=== PATIENT | male | born 1955 | race Caucasian/White ===

== ENCOUNTER 2016-10-09 09:21 | Emergency (ER) | payer OTHER ==
[~2016-10-09] VITALS: Ht 160 cm; Wt 57.2 kg
[~2016-10-09 09:21] MED LIST: ADVAIR 100-501 EACH IH; ADVAIR 250/501 DISK IH; ASPIRIN325 MG PO; DOXYCYCLINE HY100 MG PO; DULERA 100 MCG/13 GM IH; DUONEB 2.5-0.5 M3 ML AEROSOL; DUONEB 2.5-0.5 M3 ML IH; Ecotrin PO; FOLIC ACID1 MG PO; IBUPROFEN600 MG PO; IBUPROFEN800 MG PO; IMDUR30 MG PO; ISOSORBIDE DINI30 MG PO; ISOSORBIDE MONO30 MG PO; LISINOPRIL10 MG PO; LISINOPRIL20 MG PO; LITE COAT ASPI325 M1 PO; LOPRESSOR12.5 MG PO; LOPRESSOR50 MG PO; METOPROLOL TART25 MG PO; METOPROLOL TART50 MG PO; MIRALAX17 GM PO; MIRALAX255 GM PO; MOTRIN600 MG PO; NEXIUM20 MG PO; NEXIUM40 MG PO; NITROSTAT,NITR0.4 M1 SL; NITROSTAT0.4 MG SL; OMEPRAZOLE40 M1 PO; PAROXETINE HCL20 MG PO; PAXIL20 MG PO; PRAVACHOL80 MG PO; PRAVASTATIN SOD80 MG PO; PREDNISONE10 MG PO; PREDNISONE20 MG PO; PRILOSEC40 MG PO; PROAIR HFA8.5 GM IH; PROVENTIL17 GM IH; Proventil,Ventolin H IH; RANITIDINE HCL300 M1 PO; RANITIDINE HCL300 MG PO; SIMVASTATIN40 MG PO; Tylenol Regular Stre PO; VITAMIN B-1100 MG PO; ZESTRIL,PRINIVI10 M1 PO; ZESTRIL10 MG PO; ZITHROMAX250 MG PO; Zestoretic,Prinzide PO; Zocor PO
[2016-10-09 10:15] LABS: HEMATOCRIT 44.7 % (38.0-50.0); MCH 30.4 PG (29.0-34.0); MCHC 34.5 G/DL (30.0-36.0); MCV 88.3 FL (86-99); MEAN PLAT.VOLUME 12.9 uM^3 (9.0-12.4); PLATELET COUNT 181 K/uL (156-360); RBC DIS.WIDTH-CV 14.5 % (11.8-14.6); RBC DIS.WIDTH-SD 46.1 % (39-53); RED BLOOD COUNT 5.06 M/uL (4.00-5.50); WHITE BLOOD COUNT 10.6 K/uL (4.1-10.2)
[2016-10-09 10:27] LABS: CHLORIDE 100 mEq/L (99-109); SODIUM 135 mEq/L (136-147)
[2016-10-09 10:29] LABS: GLUCOSE 92 mg/dL (70-99)
[2016-10-09 10:30] LABS: ANION GAP 9 MEQ/L (2-14)
[2016-10-09 10:33] LABS: GFR ESTIMATE (CALCULATED) > 59 mL/min/
[2016-10-09 10:34] LABS: UREA NITROGEN (BUN) 16 mg/dL (9-23)
[2016-10-09 10:35] LABS: TROP-I INTERPRETATION NEGATIVE; TROPONIN-I < 0.01 ng/mL (0.0-0.30)
[2016-10-09] MEDS ORDERED: PREDNISONE50 MG PO (11:30)
[2016-10-09] MEDS ORDERED: ZITHROMAX Z-PA250 MG PO (11:30)
[2016-10-09 11:49] VITALS: BP 120/75
== END 2016-10-09 12:02 | disposition home or self-care (01) ==
LOC: EME 09:21
DX: J44.1 Chronic obstructive pulmonary disease with (acute) exacerbation (principal); J20.9 Acute bronchitis, unspecified; R07.89 Other chest pain; F17.200 Nicotine dependence, unspecified, uncomplicated; Z85.828 Personal history of other malignant neoplasm of skin; E78.5 Hyperlipidemia, unspecified; I10 Essential (primary) hypertension; K21.9 Gastro-esophageal reflux disease without esophagitis
CPT/HCPCS: 71020; 80048; 84484; 85027; 93005; 94640; 99281; 99285; J7512

== ENCOUNTER 2018-01-16 08:14 | Emergency (ER) | payer OTHER ==
[~2018-01-16] VITALS: Ht 160 cm; Wt 55.5 kg
[~2018-01-16 08:14] MED LIST changes: +PREDNISONE50 MG PO; +ZITHROMAX Z-PA250 MG PO
[2018-01-16 09:15] LABS: HEMATOCRIT 40.7 % (38.0-50.0); HEMOGLOBIN 13.9 G/DL (12.5-16.6); MCH 31.6 PG (29.0-34.0); MCHC 34.2 G/DL (30.0-36.0); MCV 92.5 FL (86-99); PLATELET COUNT 183 K/uL (156-360); RBC DIS.WIDTH-CV 14.4 % (11.8-14.6); RBC DIS.WIDTH-SD 48.9 % (39-53)
[2018-01-16 09:27] LABS: ALBUMIN 3.7 g/dL (3.2-4.8); CHLORIDE 106 mEq/L (99-109); POTASSIUM 4.6 mEq/L (3.7-5.4); SODIUM 143 mEq/L (136-147)
[2018-01-16 09:29] LABS: GLUCOSE 87 mg/dL (70-99); TOTAL PROTEIN 6.3 g/dL (6.4-8.3)
[2018-01-16 09:31] LABS: TOTAL BILIRUBIN 0.3 mg/dL (0.0-1.0)
[2018-01-16 09:33] LABS: ALKALINE PHOSPHATASE 62 IU/L (3-129); CREATININE 1.3 mg/dL (0.6-1.3); GFR ESTIMATE (CALCULATED) > 59 mL/min/ (58.99-99999)
[2018-01-16 09:34] LABS: UREA NITROGEN (BUN) 19 mg/dL (9-23)
[2018-01-16 09:35] LABS: AST (GOT) 13 IU/L (2-34)
[2018-01-16 09:36] LABS: ALT (GPT) 13 IU/L (3-49)
[2018-01-16 09:42] LABS: TROP-I INTERPRETATION NEGATIVE; TROPONIN-I < 0.01 ng/mL (0.0-0.30)
[2018-01-16 11:31] VITALS: BP 88/62
== END 2018-01-16 11:30 | disposition left against medical advice (07) ==
LOC: EME 08:14
PROVIDERS: Nurse Practitioner Acute Care
DX: R07.9 Chest pain, unspecified (principal); R94.31 Abnormal electrocardiogram [ECG] [EKG]; J44.9 Chronic obstructive pulmonary disease, unspecified; I10 Essential (primary) hypertension; K21.9 Gastro-esophageal reflux disease without esophagitis; E78.5 Hyperlipidemia, unspecified; F41.9 Anxiety disorder, unspecified; F32.9 Major depressive disorder, single episode, unspecified; F17.200 Nicotine dependence, unspecified, uncomplicated; Z79.51 Long term (current) use of inhaled steroids; Z79.82 Long term (current) use of aspirin; Z87.01 Personal history of pneumonia (recurrent); Z86.79 Personal history of other diseases of the circulatory system; Z85.828 Personal history of other malignant neoplasm of skin; Z98.890 Other specified postprocedural states
CPT/HCPCS: 71046; 80053; 84484; 85027; 93005; 99281; 99284

== ENCOUNTER 2018-01-17 10:52 | Emergency (ER) | payer OTHER ==
[~2018-01-17] VITALS: Ht 160 cm; Wt 56.3 kg
[2018-01-17 12:13] LABS: BASOPHIL (%) 0.4 % (0-1); BASOPHIL COUNT 0.1 K/uL (0-0.1); EOSINOPHIL (%) 0.5 % (0-5); EOSINOPHIL COUNT 0.1 K/uL (0-0.3); HEMOGLOBIN 14.2 G/DL (12.5-16.6); IMMATURE GRANULOCYTE (%) 1.1 % (0.0-0.7); LYMPHOCYTE (%) 10.9 % (15-42); LYMPHOCYTE COUNT 2.2 K/uL (1.0-2.8); MCH 31.6 PG (29.0-34.0); MCHC 34.6 G/DL (30.0-36.0); MCV 91.1 FL (86-99); MONOCYTE COUNT 1.2 K/uL (0-0.8); NEUTROPHIL (%) 81.1 % (45-76); NEUTROPHIL COUNT 16.1 K/uL (1.8-6.4); PLATELET COUNT 200 K/uL (156-360); RBC DIS.WIDTH-CV 13.9 % (11.8-14.6); RBC DIS.WIDTH-SD 46.8 % (39-53); WHITE BLOOD COUNT 19.9 K/uL (4.1-10.2)
[2018-01-17 12:15] LABS: INTER. NORMALIZED RATIO 1.2
[2018-01-17 12:18] LABS: ALBUMIN 3.9 g/dL (3.2-4.8); CHLORIDE 101 mEq/L (99-109); SODIUM 136 mEq/L (136-147)
[2018-01-17 12:19] LABS: MAGNESIUM 1.5 mg/dL (1.3-2.7)
[2018-01-17 12:21] LABS: GLUCOSE 87 mg/dL (70-99); TOTAL PROTEIN 6.7 g/dL (6.4-8.3)
[2018-01-17 12:23] LABS: SERUM ETHYL ALCOHOL < 10 mg/dL
[2018-01-17 12:24] LABS: ALKALINE PHOSPHATASE 71 IU/L (3-129); CREATININE 1.3 mg/dL (0.6-1.3); GFR ESTIMATE (CALCULATED) > 59 mL/min/ (58.99-99999)
[2018-01-17 12:25] LABS: UREA NITROGEN (BUN) 17 mg/dL (9-23)
[2018-01-17 12:26] LABS: AST (GOT) 16 IU/L (2-34)
[2018-01-17 12:27] LABS: ALT (GPT) 14 IU/L (3-49); CREATINE KINASE 161 IU/L (1-294); TOTAL CK 161 IU/L (1-294)
[2018-01-17 12:30] LABS: TROP-I INTERPRETATION NEGATIVE; TROPONIN-I < 0.01 ng/mL (0.0-0.30)
[2018-01-17 12:32] LABS: TOTAL BILIRUBIN 0.5 mg/dL (0.0-1.0)
[2018-01-17 12:35] LABS: CK-MB 3.2 ng/mL (0.0-4.9)
[2018-01-17 14:05] LABS: TROP-I INTERPRETATION NEGATIVE; TROPONIN-I < 0.01 ng/mL (0.0-0.30)
[2018-01-17 15:53] VITALS: BP 117/71
== END 2018-01-17 15:54 | disposition home or self-care (01) ==
LOC: EME 10:52
PROVIDERS: Emergency Medicine
DX: J44.1 Chronic obstructive pulmonary disease with (acute) exacerbation (principal); R07.89 Other chest pain; I10 Essential (primary) hypertension; E78.5 Hyperlipidemia, unspecified; F32.9 Major depressive disorder, single episode, unspecified; K21.9 Gastro-esophageal reflux disease without esophagitis; Z79.82 Long term (current) use of aspirin; F17.200 Nicotine dependence, unspecified, uncomplicated
CPT/HCPCS: 71046; 80053; 82550; 82553; 83735; 83880; 84484; 85025; 85610; 85730; 93005; 94640; 99281; 99285; G0480

== ENCOUNTER 2018-02-15 16:17 | Emergency (ER) | payer OTHER ==
[~2018-02-15] VITALS: Ht 160 cm; Wt 52.3 kg
[2018-02-15 17:16] LABS: HEMATOCRIT 44.9 % (38.0-50.0); HEMOGLOBIN 15.4 G/DL (12.5-16.6); MCH 31.4 PG (29.0-34.0); MCHC 34.3 G/DL (30.0-36.0); MCV 91.4 FL (86-99); PLATELET COUNT 160 K/uL (156-360); RBC DIS.WIDTH-CV 14.1 % (11.8-14.6); RBC DIS.WIDTH-SD 47.8 % (39-53); RED BLOOD COUNT 4.91 M/uL (4.00-5.50); WHITE BLOOD COUNT 14.1 K/uL (4.1-10.2)
[2018-02-15 17:29] LABS: CHLORIDE 101 mEq/L (99-109); POTASSIUM 4.2 mEq/L (3.7-5.4); SODIUM 140 mEq/L (136-147)
[2018-02-15 17:31] LABS: GLUCOSE 82 mg/dL (70-99)
[2018-02-15 17:35] LABS: CREATININE 1.1 mg/dL (0.6-1.3); GFR ESTIMATE (CALCULATED) > 59 mL/min/ (58.99-99999)
[2018-02-15 17:36] LABS: UREA NITROGEN (BUN) 13 mg/dL (9-23)
[2018-02-15] MEDS ORDERED: ZITHROMAX Z-PA250 MG PO (18:53)
[2018-02-15] MEDS ORDERED: PREDNISONE20 MG PO (18:53)
[2018-02-15 20:00] VITALS: BP 161/109
== END 2018-02-15 20:02 | disposition home or self-care (01) ==
LOC: EME 16:17
DX: H66.90 Otitis media, unspecified, unspecified ear (principal); J20.9 Acute bronchitis, unspecified; J44.0 Chronic obstructive pulmonary disease with (acute) lower respiratory infection; K21.9 Gastro-esophageal reflux disease without esophagitis; I10 Essential (primary) hypertension; E78.5 Hyperlipidemia, unspecified; F32.9 Major depressive disorder, single episode, unspecified; F41.9 Anxiety disorder, unspecified; F17.200 Nicotine dependence, unspecified, uncomplicated; Z85.828 Personal history of other malignant neoplasm of skin
CPT/HCPCS: 71046; 80048; 85027; 93005; 94640; 99281; 99284; J7512